=== PATIENT | female | born 1990 | race Caucasian/White ===

== ENCOUNTER 2019-02-13 09:36 | Emergency (ER) | payer BC ==
--- NOTE | 2019-02-13 10:05 | EDM.PDOC ---
ED HPI GENERAL MEDICAL PROBLEM - General Chief Complaint: General Stated Complaint: UTI Time Seen by Provider: 02/13/19 10:01 Source of Information: Reports: Patient History Limitations: Reports: No Limitations - History of Present Illness INITIAL COMMENTS - FREE TEXT/NARRATIVE: HISTORY AND PHYSICAL: History of present illness: Patient is a 28-year-old female who presents to the ED today with concern of facial swelling. Patient states that about a week ago she had gone to the urgent care and had an abscess incision and drained. She states at that time she was placed on Keflex. She is states she is currently approximately 36 weeks gestation and follows an [facility] PACKAGING [facility]INE[facility] in [place]. Patient states that the same time, she was informed that she has a urinary tract infection per her routine OB appointment. She states that did not change any antibiotics as she was on Keflex. Patient states she was asymptomatic of her urinary tract infection. Patient states that the facial swelling is not getting worse but is also not improving, despite taking Keflex. Patient denies any fever, chills, headache, change in vision, syncope or near syncope. Denies any chest pain, shortness of breath or cough. Denies any abdominal pain, nausea, vomiting, diarrhea, constipation or dysuria. Has not noted any blood in urine or stool. Patient has been eating and drinking appropriately. Patient denies any other health history. Review of systems: As per history of present illness and below otherwise all systems reviewed and negative. Past medical history: As per history of present illness and as reviewed below otherwise noncontributory. Surgical history: As per history of present illness and as reviewed below otherwise noncontributory. Social history: See social history for further information Family history: As per history of present illness and as reviewed below otherwise noncontributory. Physical exam: General: Patient is alert, oriented, and in no acute distress. She is sitting comfortably on the exam table. HEENT: Atraumatic, normocephalic, pupils equal and reactive bilaterally, negative for conjunctival pallor or scleral icterus, mucous membranes moist, TMs normal bilaterally, throat clear, neck supple, nontender, trachea midline. No drooling or trismus noted. No meningeal signs. No hot potato voice noted. Patient does have in area that was primarily incision and drained on the right of the mandible. There is some mild erythema surrounding the incision. There is mild underlying swelling surrounding this area. Patient does have full range of motion of the TMJ joint without pain or discomfort. Lungs: Clear to auscultation, breath sounds equal bilaterally, chest nontender. Heart: S1S2, regular rate and rhythm without overt murmur Abdomen: Gravid. Soft, nontender. Negative for masses or hepatosplenomegaly. Negative for costovertebral tenderness. Pelvis: Stable nontender. Genitourinary: Deferred. Rectal: Deferred. Skin: See HEENT: Otherwise, intact, warm, dry. No lesions or rashes noted. Extremities: Atraumatic, negative for cords or calf pain. Neurovascular unremarkable. Neuro: Awake, alert, oriented. Cranial nerves II through XII unremarkable. Cerebellum unremarkable. Motor and sensory unremarkable throughout. Exam nonfocal. Notes: Patient did show pictures she had taken on her phone from day by day. She does have some more swelling which has been similar the past few days. On exam, looks like an early cellulitis. Currently, the hospital is on diversion so discussed potential transfer for IV antibiotics. Patient declines wanting any form of admission or transfer and agrees to return to the ED tomorrow for reassessment as well as arrange a close follow up with her OBGYN in [place]. Will switch antibiotic to Augmentin. Patient vitals and labs today are reassuring. Supportive care measures were reviewed and discussed. Voices understanding and is agreeable to plan of care. Denies any further questions or concerns at this time. Diagnostics: UA, CBC, CMP Therapeutics: Rocephin Prescription: Augmentin Impression: Cellulitis, mandible UTI Plan: 1. Take medications as prescribed. Continue to use Tylenol as directed for pain and discomfort. 2. Return to the ED tomorrow as well as arrange appointment with SOFTWARE P[employer] [facility] as discussed. 3. Return to the ED as needed and as discussed. Definitive disposition and diagnosis as appropriate pending reevaluation and review of above. 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 ED EXAM, GENERAL - Physical Exam Exam: See Below (see dictation) Course - Vital Signs Last Recorded V/S: Last Vital Signs Temp 97.8 F 02/13/19 09:41 Pulse 77 02/13/19 11:42 Resp 18 02/13/19 11:42 BP 123/77 02/13/19 11:42 Pulse Ox 96 02/13/19 11:42 - Orders/Labs/Meds Orders: Active Orders 24 hr Category Date Time Status CULTURE URINE [RM] Stat Lab 02/13/19 10:20 Received Labs: Laboratory Tests 02/13/19 02/13/19 02/13/19 Range/Units 10:20 10:30 10:30 WBC 11.02 H (4.0-11.0) K/uL RBC 3.55 L (4.30-5.90) M/uL Hgb 10.7 L (12.0-16.0) g/dL Hct 31.9 L (36.0-46.0) % MCV 89.9 (80.0-98.0) fL MCH 30.1 (27.0-32.0) pg MCHC 33.5 (31.0-37.0) g/dL RDW Std Deviation 43.9 (28.0-62.0) fl RDW Coeff of Johana 13 (11.0-15.0) % Plt Count 224 (150-400) K/uL MPV 9.20 (7.40-12.00) fL Add Manual Diff YES Neutrophils % (Manual) 60 (48.0-80.0) % Band Neutrophils % 6 % Lymphocytes % (Manual) 33 (16.0-40.0) % Monocytes % (Manual) 1 (0.0-15.0) % Nucleated RBC % 0.0 /100WBC Absolute Seg Neuts 6.6 H (1.4-5.7) Band Neutrophils # 0.7 Lymphocytes # (Manual) 3.6 H (0.6-2.4) Monocytes # (Manual) 0.1 (0.0-0.8) Nucleated RBCs # 0 K/uL Sodium 139 (136-145) mmol/L Potassium 3.7 (3.5-5.1) mmol/L Chloride 105 (98-107) mmol/L Carbon Dioxide 22.2 (21.0-32.0) mmol/L BUN 7 (7.0-18.0) mg/dL Creatinine 0.6 (0.6-1.0) mg/dL Est Cr Clr Drug Dosing 109.42 mL/min Estimated GFR (MDRD) > 60.0 ml/min Glucose 121 H (74-106) mg/dL Calcium 8.1 L (8.5-10.1) mg/dL Total Bilirubin 0.1 L (0.2-1.0) mg/dL AST 14 L (15-37) IU/L ALT 17 (14-63) IU/L Alkaline Phosphatase 118 H (46-116) U/L Total Protein 5.9 L (6.4-8.2) g/dL Albumin 2.2 L (3.4-5.0) g/dL Globulin 3.7 (2.6-4.0) g/dL Albumin/Globulin Ratio 0.6 L (0.9-1.6) Urine Color YELLOW Urine Appearance CLEAR Urine pH 7.0 (5.0-8.0) Ur Specific [place] 1.020 (1.001-1.035) Urine Protein NEGATIVE (NEGATIVE) mg/dL Urine Glucose (UA) NEGATIVE (NEGATIVE) mg/dL Urine Ketones NEGATIVE (NEGATIVE) mg/dL Urine Occult Blood TRACE-INTACT H (NEGATIVE) Urine Nitrite NEGATIVE (NEGATIVE) Urine Bilirubin NEGATIVE (NEGATIVE) Urine Urobilinogen 0.2 (<2.0) EU/dL Ur Leukocyte Esterase TRACE H (NEGATIVE) Urine RBC 1-2 (0-2/HPF) Urine WBC 1-2 (0-5/HPF) Ur Epithelial Cells OCCASIONAL (NONE-FEW) Urine Bacteria RARE (NEGATIVE) Meds: Medications Discontinued Medications Generic Name Dose Route Start Last Admin Trade Name Tj PRN Reason Stop Dose Admin Ceftriaxone Sodium 1 gm 02/13/19 10:16 02/13/19 10:56 Rocephin IM 02/13/19 10:17 1 gm ONETIME ONE Administration Lidocaine HCl Confirm 02/13/19 10:24 Xylocaine-Mpf 1% Administered 02/13/19 10:25 Dose 2 mls @ as directed .ROUTE .STK-MED ONE Lidocaine HCl 2.1 ml 02/13/19 10:31 02/13/19 10:56 Xylocaine 1% INJECT 02/13/19 10:32 2.1 ml ONETIME ONE Administration Departure - Departure Time of Disposition: 11:27 Disposition: Home, Self-Care 01 Clinical Impression: Cellulitis Qualifiers: Site of cellulitis: face Qualified Code(s): L03.211 - Cellulitis of face Urinary tract infection Qualifiers: Urinary tract infection type: site unspecified Hematuria presence: without hematuria Qualified Code(s): N39.0 - Urinary tract infection, site not specified - Discharge Information Prescriptions: Amoxicillin/Potassium Clav [Augmentin 875-125 Tablet] 1 each PO BID 10 Days #20 tablet Instructions: Urinary Tract Infection, Adult, [id number], Cellulitis, Adult, [id number] Referrals: PCP,None [Primary Care Provider] - Forms: ED Department Discharge Additional Instructions: The following information is given to patients seen in the emergency department who are being discharged to home. This information is to outline your options for follow-up care. We provide all patients seen in our emergency department with a follow-up referral. The need for follow-up, as well as the timing and circumstances, are variable depending upon the specifics of your emergency department visit. If you don't have a primary care physician on staff, we will provide you with a referral. We always advise you to contact your personal physician following an emergency department visit to inform them of the circumstance of the visit and for follow-up with them and/or the need for any referrals to a consulting specialist. The emergency department will also refer you to a specialist when appropriate. This referral assures that you have the opportunity for follow-up care with a specialist. All of these measure are taken in an effort to provide you with optimal care, which includes your follow-up. Under all circumstances we always encourage you to contact your private physician who remains a resource for coordinating your care. When calling for follow-up care, please make the office aware that this follow-up is from your recent emergency room visit. If for any reason you are refused follow-up, please contact the [facility] Emergency Department at and asked to speak to the emergency department charge nurse. [facility] Primary [facility] [address] [place] [id number] [place] [address] 1. Take medications as prescribed. Continue to use Tylenol as directed for pain and discomfort. 2. Return to the ED tomorrow as well as arrange appointment with SOFTWARE PACKAGING ENGINEER as discussed. 3. Return to the ED as needed and as discussed. - My Orders Last 24 Hours: My Active Orders 02/13/19 10:20 CULTURE URINE [RM] Stat - Assessment/Plan Last 24 Hours: My Active Orders 02/13/19 10:20 CULTURE URINE [RM] Stat
[2019-02-13] MEDS ORDERED: cefTRIAXone 1 GM Vial IM ONE (10:16)
[2019-02-13] MEDS ORDERED: Lidocaine 1% 2 ML ONE (10:24)
[2019-02-13] MEDS ORDERED: Lidocaine 1% 20 ML MDV INJECT ONE (10:31)
[2019-02-13 11:15] LABS: CHLORIDE,CL 105 mmol/L (98-107); SODIUM,NA 139 mmol/L (136-145)
== END 2019-02-13 11:43 | disposition home or self-care (01) ==
LOC: MW.ED 09:36
DX: L03.211 Cellulitis of face (principal); N39.0 Urinary tract infection, site not specified; F17.210 Nicotine dependence, cigarettes, uncomplicated; F32.9 Major depressive disorder, single episode, unspecified; Z79.899 Other long term (current) drug therapy
CPT/HCPCS: 36415; 80053; 81001; 85025; 87086; 96372; 99283; J0696; J2001

== ENCOUNTER 2019-02-24 09:18 | Inpatient (IN) | payer BC ==
[2019-02-24] MEDS ORDERED: Tranexamic Acid 1,000 MG in Sodium Chloride 0.9% 100 ML IV PRN (10:34)
[2019-02-24] MEDS ORDERED: Lidocaine 1% 50 ML MDV INJECT PRN (10:34)
[2019-02-24] MEDS ORDERED: Misoprostol 200 MCG Tab PO PRN (10:34)
[2019-02-24] MEDS ORDERED: Sodium Chloride 0.9% 10 ML SDV IV PRN (10:34)
[2019-02-24] MEDS ORDERED: Sodium Chloride 0.9% 2.5 ML Syringe FLUSH PRN (10:34)
[2019-02-24] MEDS ORDERED: Carboprost Tromethamine 250 MCG/1 ML Amp IM PRN (10:34)
[2019-02-24] MEDS ORDERED: Butorphanol 1 MG/ML SDV IVPUSH PRN (10:34)
[2019-02-24] MEDS ORDERED: Water For Irrigation,Sterile 1,000 ML Container IRR PRN (10:34)
[2019-02-24] MEDS ORDERED: Methylergonovine 0.2 MG/1 ML Amp IM PRN (10:34)
[2019-02-24] MEDS ORDERED: Sodium Chloride 0.9% 10 ML Syringe FLUSH PRN (10:34)
[2019-02-24] MEDS ORDERED: Nalbuphine 10 MG/1 ML Vial IVPUSH PRN (10:34)
[2019-02-24] MEDS ORDERED: Lactated Ringers 1,000 ML IV SCH (10:45)
[2019-02-24] MEDS ORDERED: Oxytocin/0.9 % Sodium Chloride 30 UNIT/500 ML BAG IV SCH (10:45)
[2019-02-24] MEDS ORDERED: Ampicillin 2 GM in Sodium Chloride 0.9% 100 ML IV ONE (11:00)
--- NOTE | 2019-02-24 11:27 | PCM.LDHP ---
L&D History of Present Illness - General Date of Service: 02/24/19 Admit Problem/Dx: Patient Status Order with Admit Dx/Problem 02/24/19 09:24 Patient Status [ADT] Routine 02/24/19 10:34 Patient Status [ADT] Routine Admission Diagnosis/Problem Admission Diagnosis/Problem - planned Source of Information: Patient History Limitations: Reports: No Limitations - History of Present Illness Improves with: Reports: None Worsens with: Reports: None Associated Symptoms: Reports: N - Related Data Allergies/Adverse Reactions: Allergies Allergy/AdvReac Type Severity Reaction Status Date / Time No Known Allergies Allergy Verified 02/13/19 09:45 Home Medications: Home Meds Escitalopram [Lexapro] 10 mg PO DAILY 02/13/19 [History] PNV95/Ferrous Fumarate/FA [ Tablet] 1 each PO DAILY 02/24/19 [History] Past Medical History - Past Health History Medical/Surgical History: Denies 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/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 , G1 Psychiatric History: Reports: Depression Social & Family History - Family History Family Medical History: Noncontributory - Caffeine Use Caffeine Use: Reports: Coffee, Energy Drinks, Soda, Tea H&P Review of Systems - Review of Systems: Review Of Systems: See Below General: Reports: No Symptoms HEENT: Reports: No Symptoms Pulmonary: Reports: No Symptoms Cardiovascular: Reports: No Symptoms Gastrointestinal: Reports: No Symptoms Genitourinary: Reports: No Symptoms Musculoskeletal: Reports: No Symptoms Skin: Reports: No Symptoms Psychiatric: Reports: No Symptoms Neurological: Reports: No Symptoms Hematologic/Lymphatic: Reports: No Symptoms Immunologic: Reports: No Symptoms L&D Exam - Exam Exam: See Below - Vital Signs Weight: 98.43 kg - OB Specific Contraction Intensity: Mild Movement: Active Heart Tones: Present Presentation: Vertex - Herrmann Score Herrmann Score Cervix Position: Midposition Herrmann Score Consistency: Medium Herrmann Score Effacement: 51-70% Herrmann Score Dilation: 1-2 cm Herrmann Score 's Station: -3 Herrmann Score Total: 5 - Exam General: Alert, Oriented HEENT: PERRLA, Conjunctiva Clear, EACs Clear, EOMI, Hearing Intact, Mucosa Moist & [place], Nares Patent, Normal Nasal Septum, Posterior Pharynx Clear, TMs Clear Neck: Supple, Trachea Midline Lungs: Clear to Auscultation, Normal Respiratory Effort Cardiovascular: Regular Rate, Regular Rhythm GI/Abdominal Exam: Normal Bowel Sounds, Soft, Non-Tender, No Organomegaly, No Distention, No Abnormal Bruit, No Mass, Pelvis Stable Rectal Exam: Normal Exam, Normal Rectal Tone Genitourinary: Normal external exam, Normal bimanual exam, Normal speculum exam Back Exam: Normal Inspection, Full Range of Motion Extremities: Normal Inspection, Normal Range of Motion, Non-Tender, No Pedal Edema, Normal Capillary Refill Skin: Warm, Dry, Intact Neurological: Cranial Nerves Intact, Reflexes Equal Bilateral Psychiatric: Alert, Normal Affect, Normal Mood - Patient Data Lab Results Last 24 hrs: Laboratory Results - last 24 hr 02/24/19 02/24/19 Range/Units 09:39 10:58 WBC 13.86 H (4.0-11.0) K/uL RBC 3.87 L (4.30-5.90) M/uL Hgb 11.6 L (12.0-16.0) g/dL Hct 34.3 L (36.0-46.0) % MCV 88.6 (80.0-98.0) fL MCH 30.0 (27.0-32.0) pg MCHC 33.8 (31.0-37.0) g/dL RDW Std Deviation 42.3 (28.0-62.0) fl RDW Coeff of Johana 13 (11.0-15.0) % Plt Count 249 (150-400) K/uL MPV 9.70 (7.40-12.00) fL Nucleated RBC % 0.0 /100WBC Nucleated RBCs # 0 K/uL Membrane Rupture POSITIVE Result Diagrams: 02/24/19 10:58 Problem List Initiated/Reviewed/Updated: Yes Orders Last 24hrs: Active Orders 24 hr Category Date Time Status Patient Status [ADT] Routine ADT 02/24/19 10:34 Active Heart Tones [RC] CONTINUOUS Care 02/24/19 10:34 Active Non Stress Test [RC] PER UNIT ROUTINE Care 02/24/19 10:02 Active Non Stress Test [RC] PER UNIT ROUTINE Care 02/24/19 10:34 Active May Shower [RC] ASDIRECTED Care 02/24/19 10:34 Active Notify Provider [RC] PRN Care 02/24/19 10:34 Active Up ad Indigo [RC] ASDIRECTED Care 02/24/19 10:02 Active Up ad Indigo [RC] ASDIRECTED Care 02/24/19 10:34 Active Vaginal Exam [RC] Click to Edit Care 02/24/19 10:02 Active Vaginal Exam [RC] PRN Care 02/24/19 10:34 Active Vital Signs [RC] PER UNIT ROUTINE Care 02/24/19 10:02 Active Vital Signs [RC] PER UNIT ROUTINE Care 02/24/19 10:34 Active TYPE AND SCREEN [BBK] Routine Lab 02/24/19 10:58 Received Ampicillin 1 gm Med 02/24/19 15:00 Active Sodium Chloride 0.9% [Normal Saline] 50 ml IV Q4H Ampicillin 2 gm Med 02/24/19 11:00 Active Sodium Chloride 0.9% [Normal Saline] 100 ml IV ONETIME Butorphanol [Stadol] Med 02/24/19 10:34 Active 1 mg IVPUSH Q1H PRN Carboprost Tromethamine [Hemabate DS] Med 02/24/19 10:34 Active 250 mcg IM ASDIRECTED PRN Lactated Ringers [Ringers, Lactated] 1,000 ml Med 02/24/19 10:45 Active IV ASDIRECTED Lidocaine 1% [Xylocaine 1%] Med 02/24/19 10:34 Active 50 ml INJECT ONETIME PRN Methylergonovine [Methergine] Med 02/24/19 10:34 Active 0.2 mg IM ASDIRECTED PRN Nalbuphine [Nubain] Med 02/24/19 10:34 Active 10 mg IVPUSH Q1H PRN Oxytocin/0.9 % Sodium Chloride [Oxytocin 30 Unit/500 ML Med 02/24/19 10:45 Active -NS] 30 unit in 500 ml IV TITRATE Sodium Chloride 0.9% [Normal Saline] Med 02/24/19 10:34 Active 10 ml IV ASDIRECTED PRN Sodium Chloride 0.9% [Saline Flush] Med 02/24/19 10:34 Active 10 ml FLUSH ASDIRECTED PRN Sodium Chloride 0.9% [Saline Flush] Med 02/24/19 10:34 Active 2.5 ml FLUSH ASDIRECTED PRN Tranexamic Acid [Cyklokapron] 1,000 mg Med 02/24/19 10:34 Active Sodium Chloride 0.9% [Normal Saline] 100 ml IV ONETIME Water For Irrigation,Sterile [Sterile Water for Med 02/24/19 10:34 Active Irrigation] 1,000 ml IRR ASDIRECTED PRN miSOPROStol [Cytotec] Med 02/24/19 10:34 Active 200 mcg PO ONETIME PRN Scalp Electrode [WOMSER] Per Unit Routine Oth 02/24/19 10:34 Ordered Peripheral IV Insertion Adult [OM.PC] Routine Oth 02/24/19 10:34 Ordered Resuscitation Status Routine Resus Stat 02/24/19 10:02 Ordered Medication Orders Butorphanol Tartrate (Stadol) 1 mg IVPUSH Q1H PRN PRN Reason: Pain Carboprost Tromethamine (Hemabate Ds) 250 mcg IM ASDIRECTED PRN PRN Reason: Post Hemorrhage Tranexamic Acid 1,000 mg/ (Sodium Chloride) 110 mls @ 660 mls/hr IV ONETIME PRN PRN Reason: Bleeding Lactated Ringer's (Ringers, Lactated) 1,000 mls @ 150 mls/hr IV ASDIRECTED [facility] Last Admin: 02/24/19 11:18 Dose: 150 mls/hr Oxytocin/Sodium Chloride (Oxytocin 30 Unit/500 Ml-Ns) 30 unit in 500 mls @ 999 mls/hr IV TITRATE [facility] Ampicillin Sodium 2 gm/ Sodium (Chloride) 100 mls @ 200 mls/hr IV ONETIME ONE Stop: 02/24/19 11:29 Last Admin: 02/24/19 11:19 Dose: 200 mls/hr Ampicillin Sodium 1 gm/ Sodium (Chloride) 50 mls @ 100 mls/hr IV Q4H [facility] Lidocaine HCl (Xylocaine 1%) 50 ml INJECT ONETIME PRN PRN Reason: Laceration repair Methylergonovine Maleate (Methergine) 0.2 mg IM ASDIRECTED PRN PRN Reason: Post Hemorrhage Misoprostol (Cytotec) 200 mcg PO ONETIME PRN PRN Reason: Post Hemorrhage Nalbuphine HCl (Nubain) 10 mg IVPUSH Q1H PRN PRN Reason: Pain (severe 7-10) Sodium Chloride (Saline Flush) 10 ml FLUSH ASDIRECTED PRN PRN Reason: Keep Vein Open Sodium Chloride (Saline Flush) 2.5 ml FLUSH ASDIRECTED PRN PRN Reason: Keep Vein Open Sodium Chloride (Normal Saline) 10 ml IV ASDIRECTED PRN PRN Reason: IV Use Sterile Water (Sterile Water For Irrigation) 1,000 ml IRR ASDIRECTED PRN PRN Reason: delivery Assessment/Plan Comment:: [id number]. SROM >24 hours comfirm by [facility]. Have vare in [place] her record is available with her. Her GBS status is unknown we will start her on antibiotic as per protocol. will start induction with Cytotec and Pitocin and she can have epidural when it is appropriate.
[2019-02-24] MEDS ORDERED: Misoprostol 25 MCG (1/4 of 100 MCG) Tab VAG ONE (11:45)
[2019-02-24] MEDS ORDERED: Misoprostol 25 MCG (1/4 of 100 MCG) Tab PO ONE (11:45)
[2019-02-24] MEDS ORDERED: Ampicillin 1 GM in Sodium Chloride 0.9% 50 ML IV SCH (15:00)
--- NOTE | 2019-02-24 17:19 | PCM.DEL ---
L & D Note - General Info Date of Service: 02/24/19 Mother's Due Date: 03/16/19 - Delivery Note Labor: Spontaneous Cervical Ripening Method: Misoprostil Delivery Outcome: Livebirth Delivery Method: Spontaneous Vaginal Delivery-Single Infant Delivery Mode: Spontaneous Presentation: Vertex Nuchal Cord: None Anesthesia Type: None Episiotomy Type: None Laceration: Periurethral (skid danie no repair) Placenta: Intact, Spontaneous Cord: 3 Vessels Estimated Blood Loss: 100 Resuscitation Needed: No [place]: Stimulated Score 1 min: 8 Score 5 min: 9 Second Stage Interventions: Reports: Pushing, Pulls Own Legs Back Delivery Comments (Free Text/Narrative):: of viable male, head delivered with good pushing, shoulders and body followed easily, infant with spont cry placed on mothers abdomen with RN at for evaluation. Delayed cord clamping, pitocin to IVF, cord clamped and cut by FOB. Cord blood collected. Placenta delivered grossly intact. Inspection noted bilat periurethral skid mg without repair. APGARS 8/9, Wt: 6lb 15oz, EBL 100cc. Mother and baby left in stable condition for recovery bonding well. Induction Criteria - Augmentation Estimated Pelvis: Reports: Adequate Weight Estimated:: Reports: AGA Reassuring Monitoring Strip: Yes Absence of Tachy Systole: Yes - General Info Date of Service: 02/24/19 Admission Dx/Problem (Free Text): Patient Status Order with Admit Dx/Problem 02/24/19 09:24 Patient Status [ADT] Routine 02/24/19 10:34 Patient Status [ADT] Routine Admission Diagnosis/Problem Admission Diagnosis/Problem - planned Functional Status: Reports: Pain Controlled - Review of Systems General: Reports: No Symptoms HEENT: Reports: No Symptoms Pulmonary: Reports: No Symptoms Cardiovascular: Reports: No Symptoms Gastrointestinal: Reports: No Symptoms Genitourinary: Reports: No Symptoms Musculoskeletal: Reports: No Symptoms Skin: Reports: No Symptoms Neurological: Reports: No Symptoms Psychiatric: Reports: No Symptoms - Patient Data Weight - Most Recent: 98.43 kg Lab Results Last 24 Hours: Laboratory Results - last 24 hr 02/24/19 02/24/19 02/24/19 Range/Units 09:39 10:58 10:58 WBC 13.86 H (4.0-11.0) K/uL RBC 3.87 L (4.30-5.90) M/uL Hgb 11.6 L (12.0-16.0) g/dL Hct 34.3 L (36.0-46.0) % MCV 88.6 (80.0-98.0) fL MCH 30.0 (27.0-32.0) pg MCHC 33.8 (31.0-37.0) g/dL RDW Std Deviation 42.3 (28.0-62.0) fl RDW Coeff of Johana 13 (11.0-15.0) % Plt Count 249 (150-400) K/uL MPV 9.70 (7.40-12.00) fL Nucleated RBC % 0.0 /100WBC Nucleated RBCs # 0 K/uL Membrane Rupture POSITIVE Blood Type A POSITIVE Antibody Screen NEGATIVE Med Orders - Current: Current Medications Butorphanol Tartrate (Stadol) 1 mg IVPUSH Q1H PRN PRN Reason: Pain Last Admin: 02/24/19 14:39 Dose: 1 mg Carboprost Tromethamine (Hemabate Ds) 250 mcg IM ASDIRECTED PRN PRN Reason: Post Hemorrhage Tranexamic Acid 1,000 mg/ (Sodium Chloride) 110 mls @ 660 mls/hr IV ONETIME PRN PRN Reason: Bleeding Lactated Ringer's (Ringers, Lactated) 1,000 mls @ 150 mls/hr IV ASDIRECTED DEVONTE Last Admin: 02/24/19 11:18 Dose: 150 mls/hr Oxytocin/Sodium Chloride (Oxytocin 30 Unit/500 Ml-Ns) 30 unit in 500 mls @ 999 mls/hr IV TITRATE [facility] Ampicillin Sodium 1 gm/ Sodium (Chloride) 50 mls @ 100 mls/hr IV Q4H [facility] Lidocaine HCl (Xylocaine 1%) 50 ml INJECT ONETIME PRN PRN Reason: Laceration repair Methylergonovine Maleate (Methergine) 0.2 mg IM ASDIRECTED PRN PRN Reason: Post Hemorrhage Misoprostol (Cytotec) 200 mcg PO ONETIME PRN PRN Reason: Post Hemorrhage Nalbuphine HCl (Nubain) 10 mg IVPUSH Q1H PRN PRN Reason: Pain (severe 7-10) Sodium Chloride (Saline Flush) 10 ml FLUSH ASDIRECTED PRN PRN Reason: Keep Vein Open Sodium Chloride (Saline Flush) 2.5 ml FLUSH ASDIRECTED PRN PRN Reason: Keep Vein Open Sodium Chloride (Normal Saline) 10 ml IV ASDIRECTED PRN PRN Reason: IV Use Sterile Water (Sterile Water For Irrigation) 1,000 ml IRR ASDIRECTED PRN PRN Reason: delivery Discontinued Medications Ampicillin Sodium 2 gm/ Sodium (Chloride) 100 mls @ 200 mls/hr IV ONETIME ONE Stop: 02/24/19 11:29 Last Admin: 02/24/19 11:19 Dose: 200 mls/hr Misoprostol (Cytotec) 25 mcg PO ONETIME ONE Stop: 02/24/19 11:46 Last Admin: 02/24/19 12:16 Dose: 25 mcg Misoprostol (Cytotec) 25 mcg VAG ONETIME ONE Stop: 02/24/19 11:46 Last Admin: 02/24/19 12:17 Dose: 25 mcg - Exam General: Alert, Oriented, Cooperative, No Acute Distress Lungs: Normal Respiratory Effort GI/Abdominal Exam: Soft, Non-Tender (Female) Exam: Normal External Exam, Normal Bimanual Exam, Vaginal Bleeding Back Exam: Normal Inspection, Full Range of Motion Extremities: Normal Inspection, Normal Range of Motion, Non-Tender, No Pedal Edema, Normal Capillary Refill Skin: Warm, Dry, Intact Wound/Incisions: Healing Well Neurological: No New Focal Deficit, Normal Speech, Normal Tone Psy/Mental Status: Alert, Normal Affect, Normal Mood - Problem List & Annotations (1) Supervision of normal IUP (intrauterine ) in primigravida SNOMED Code(s): 18244746, 326212091, 172684753, 613563281 Code(s): Z34.00 - ENCNTR FOR SUPRVSN OF NORMAL FIRST , UNSP TRIMESTER Status: Acute Current Visit: Yes Qualifiers: Trimester: third trimester Qualified Code(s): Z34.03 - Encounter for supervision of normal first , third trimester (2) (normal spontaneous vaginal delivery) SNOMED Code(s): 95037448 Code(s): O80 - ENCOUNTER FOR FULL-TERM UNCOMPLICATED DELIVERY Status: Acute Priority: High Current Visit: Yes - Problem List Review Problem List Initiated/Reviewed/Updated: Yes - Plan Plan:: IUP37+3. SROM >24 hours comfirm by [facility]. Have vare in [place] her record is available with her. Her GBS status is unknown we will start her on antibiotic as per protocol. will start induction with Cytotec and Pitocin and she can have epidural when it is appropriate. Del A: of viable male, APGARS 8/9, WT 6lb 15oz, Intact, EBL 100cc. Mother and baby stable P: Routine pp plan of care
[2019-02-24] MEDS ORDERED: Lanolin 100% Cream 7 GM Tube TOP PRN (17:22)
[2019-02-24] MEDS ORDERED: Docusate Sodium 100 MG Cap PO PRN (17:22)
[2019-02-24] MEDS ORDERED: Bisacodyl 10 MG Supp RECTAL PRN (17:22)
[2019-02-24] MEDS ORDERED: Witch Hazel Medicated Pads 40/Jar TOP PRN (17:22)
[2019-02-24] MEDS ORDERED: Acetaminophen 500 MG Tab PO PRN (17:22)
[2019-02-24] MEDS ORDERED: Benzocaine/Menthol 20%-0.5% Spray 78 GM Cannister TOP PRN (17:22)
[2019-02-24] MEDS ORDERED: oxyCODONE 5 MG Tab PO PRN (17:22)
[2019-02-24] MEDS ORDERED: Ibuprofen 400 MG Tab PO PRN (17:22)
[2019-02-24] MEDS: Acetaminophen 500 MG Tab PO PRN (19:40)
[2019-02-25] MEDS: Ibuprofen 800 MG Tab PO PRN ×2 (00:47→10:51)
[2019-02-25] MEDS: Acetaminophen 500 MG Tab PO PRN ×2 (07:47→16:08)
--- NOTE | 2019-02-25 08:45 | PCM.DCSUM1 ---
Discharge Summary - Hospital Course Free Text/Narrative:: Discharge home with . Follow up in 6 weeks for . Diagnosis: Stroke: No - Discharge Data Discharge Date: 02/25/19 Discharge Disposition: Home, Self-Care 01 Condition: Good - Discharge Diagnosis/Problem(s) (1) Supervision of normal IUP (intrauterine ) in primigravida SNOMED Code(s): 41084489, 658166382, 690258391, 627042875 ICD Code: Z34.00 - ENCNTR FOR SUPRVSN OF NORMAL FIRST , UNSP TRIMESTER Status: Acute Priority: High Current Visit: Yes Qualifiers: Trimester: third trimester Qualified Code(s): Z34.03 - Encounter for supervision of normal first , third trimester (2) (normal spontaneous vaginal delivery) SNOMED Code(s): 46415704 ICD Code: O80 - ENCOUNTER FOR FULL-TERM UNCOMPLICATED DELIVERY Status: Acute Priority: High Current Visit: Yes - Patient Instructions Diet: Usual Diet as Tolerated Activity: As Tolerated, No Strenuous Activities, Rest and Relax Today Driving: May Drive Today Showering/Bathing: May Shower Notify Provider of: Fever, Increased Pain, Drainage, Nausea and/or Vomiting Other/Special Instructions: Discharge home with . Follow up in 6 weeks for . - Discharge Plan *PRESCRIPTION DRUG MONITORING PROGRAM REVIEWED*: Not Applicable *COPY OF PRESCRIPTION DRUG MONITORING REPORT IN PATIENT SUE: Not Applicable Prescriptions/Med Rec: Ibuprofen [Motrin] 800 mg PO Q6H PRN #90 tablet PRN Reason: Pain Home Medications: Home Meds Escitalopram [Lexapro] 10 mg PO DAILY 02/13/19 [History] PNV95/Ferrous Fumarate/FA [ Tablet] 1 each PO DAILY 02/24/19 [History] Ibuprofen [Motrin] 800 mg PO Q6H PRN #90 tablet 02/25/19 [Rx] - Discharge Summary/Plan Comment DC Time >30 min.: Yes - General Info Date of Service: 02/25/19 Admission Dx/Problem (Free Text: Patient Status Order with Admit Dx/Problem 02/24/19 09:24 Patient Status [ADT] Routine 02/24/19 10:34 Patient Status [ADT] Routine Admission Diagnosis/Problem Admission Diagnosis/Problem - planned Functional Status: Reports: Pain Controlled, Tolerating Diet, Ambulating, Urinating - Review of Systems General: Reports: No Symptoms HEENT: Reports: No Symptoms Pulmonary: Reports: No Symptoms Cardiovascular: Reports: No Symptoms Gastrointestinal: Reports: No Symptoms Genitourinary: Reports: No Symptoms Musculoskeletal: Reports: No Symptoms Skin: Reports: No Symptoms Neurological: Reports: No Symptoms Psychiatric: Reports: No Symptoms - Patient Data Vitals - Most Recent: Last Vital Signs Temp 36.4 C 02/25/19 07:20 Pulse 67 02/25/19 07:20 Resp 16 02/25/19 07:20 BP 129/63 02/25/19 07:20 Pulse Ox 96 02/25/19 07:20 Weight - Most Recent: 98.43 kg Lab Results - Last 24 hrs: Laboratory Results - last 24 hr 02/24/19 02/24/19 02/24/19 Range/Units 09:39 10:58 10:58 WBC 13.86 H (4.0-11.0) K/uL RBC 3.87 L (4.30-5.90) M/uL Hgb 11.6 L (12.0-16.0) g/dL Hct 34.3 L (36.0-46.0) % MCV 88.6 (80.0-98.0) fL MCH 30.0 (27.0-32.0) pg MCHC 33.8 (31.0-37.0) g/dL RDW Std Deviation 42.3 (28.0-62.0) fl RDW Coeff of Johana 13 (11.0-15.0) % Plt Count 249 (150-400) K/uL MPV 9.70 (7.40-12.00) fL Nucleated RBC % 0.0 /100WBC Nucleated RBCs # 0 K/uL Membrane Rupture POSITIVE Blood Type A POSITIVE Antibody Screen NEGATIVE Med Orders - Current: Current Medications Acetaminophen (Tylenol Extra Strength) 500 mg PO Q4H PRN PRN Reason: Pain Acetaminophen (Tylenol Extra Strength) 1,000 mg PO Q4H PRN PRN Reason: Pain Last Admin: 02/25/19 07:47 Dose: 1,000 mg Benzocaine/Menthol (Dermoplast Pain Relief 20%-0.5% [place]) 78 gm TOP ASDIRECTED PRN PRN Reason: Perineal Comfort Measure Last Admin: 02/24/19 19:43 Dose: 78 gm Bisacodyl (Dulcolax) 10 mg RECTAL ONETIME PRN PRN Reason: Constipation Docusate Sodium (Colace) 100 mg PO BID PRN PRN Reason: Constipation Emollient Ointment (Lansinoh Hpa) 0 gm TOP ASDIRECTED PRN PRN Reason: Sore Nipples Ibuprofen (Motrin) 400 mg PO Q4H PRN PRN Reason: Pain Ibuprofen (Motrin) 800 mg PO Q6H PRN PRN Reason: Pain Last Admin: 02/25/19 00:47 Dose: 800 mg Oxycodone HCl (Oxycodone) 5 mg PO Q2H PRN PRN Reason: Pain Witch Deja (Tucks) 1 pad TOP ASDIRECTED PRN PRN Reason: comfort care Last Admin: 02/24/19 19:44 Dose: 1 pad Discontinued Medications Butorphanol Tartrate (Stadol) 1 mg IVPUSH Q1H PRN PRN Reason: Pain Last Admin: 02/24/19 14:39 Dose: 1 mg Carboprost Tromethamine (Hemabate Ds) 250 mcg IM ASDIRECTED PRN PRN Reason: Post Hemorrhage Tranexamic Acid 1,000 mg/ (Sodium Chloride) 110 mls @ 660 mls/hr IV ONETIME PRN PRN Reason: Bleeding Lactated Ringer's (Ringers, Lactated) 1,000 mls @ 150 mls/hr IV ASDIRECTED [facility] Last Admin: 02/24/19 11:18 Dose: 150 mls/hr Oxytocin/Sodium Chloride (Oxytocin 30 Unit/500 Ml-Ns) 30 unit in 500 mls @ 999 mls/hr IV TITRATE [facility] Ampicillin Sodium 2 gm/ Sodium (Chloride) 100 mls @ 200 mls/hr IV ONETIME ONE Stop: 02/24/19 11:29 Last Admin: 02/24/19 11:19 Dose: 200 mls/hr Ampicillin Sodium 1 gm/ Sodium (Chloride) 50 mls @ 100 mls/hr IV Q4H [facility] Lidocaine HCl (Xylocaine 1%) 50 ml INJECT ONETIME PRN PRN Reason: Laceration repair Methylergonovine Maleate (Methergine) 0.2 mg IM ASDIRECTED PRN PRN Reason: Post Hemorrhage Misoprostol (Cytotec) 200 mcg PO ONETIME PRN PRN Reason: Post Hemorrhage Misoprostol (Cytotec) 25 mcg PO ONETIME ONE Stop: 02/24/19 11:46 Last Admin: 02/24/19 12:16 Dose: 25 mcg Misoprostol (Cytotec) 25 mcg VAG ONETIME ONE Stop: 02/24/19 11:46 Last Admin: 02/24/19 12:17 Dose: 25 mcg Nalbuphine HCl (Nubain) 10 mg IVPUSH Q1H PRN PRN Reason: Pain (severe 7-10) Sodium Chloride (Saline Flush) 10 ml FLUSH ASDIRECTED PRN PRN Reason: Keep Vein Open Sodium Chloride (Saline Flush) 2.5 ml FLUSH ASDIRECTED PRN PRN Reason: Keep Vein Open Sodium Chloride (Normal Saline) 10 ml IV ASDIRECTED PRN PRN Reason: IV Use Sterile Water (Sterile Water For Irrigation) 1,000 ml IRR ASDIRECTED PRN PRN Reason: delivery - Exam General: Reports: Alert, Oriented, Cooperative, No Acute Distress Lungs: Reports: Normal Respiratory Effort GI/Abdominal Exam: Soft, Non-Tender (Female) Exam: Deferred, Vaginal Bleeding Rectal (Female) Exam: Deferred Back Exam: Reports: Normal Inspection, Full Range of Motion Extremities: Normal Inspection, Normal Range of Motion, Non-Tender, No Pedal Edema, Normal Capillary Refill Skin: Reports: Warm, Dry, Intact Wound/Incisions: Reports: Healing Well Neurological: Reports: No New Focal Deficit, Normal Gait, Normal Speech, Normal Tone, Strength Equal Bilateral Psy/Mental Status: Reports: Alert, Normal Affect, Normal Mood
== END 2019-02-25 19:20 | disposition home or self-care (01) | DRG 560 ==
LOC: MW.OBCHECK 09:18 → MW.OB 09:19 → MW.OBCHECK 10:34 → OBSVTOIN 16:44 → MW.OB 22:00
PROVIDERS: ADMIT Obstetrics & Gynecology; ATTEND Obstetrics & Gynecology
PROC: 6A550ZT Pheresis of Cord Blood Stem Cells, Single (ICD-10-PCS; principal; 2019-02-24)
PROC: 3E0P7VZ Introduction of Hormone into Female Reproductive, Via Natural or Artificial Opening (ICD-10-PCS; principal; 2019-02-24)
PROC: 3E033VJ Introduction of Other Hormone into Peripheral Vein, Percutaneous Approach (ICD-10-PCS; principal; 2019-02-24)
PROC: 10E0XZZ Delivery of Products of Conception, External Approach (ICD-10-PCS; principal; 2019-02-24)
DX: O99.344 Other mental disorders complicating childbirth (principal); F32.9 Major depressive disorder, single episode, unspecified; Z3A.37 37 weeks gestation of pregnancy; Z37.0 Single live birth; Z79.899 Other long term (current) drug therapy
CPT/HCPCS: 36415; 59025; 59409; 84112; 85027; 86850; 86900; 86901; A9270-GY; J0290; J0595; J7030; J7120